=== PATIENT | male | born 1930 | race Caucasian/White ===

== ENCOUNTER → 2017-03-11 | Outpatient (CLI) | payer MEDICARE, BC ==
[~2017-03-11] MED LIST: CARDI-OMEGA1000 MG PO; CIPRO 250MG TA250 MG PO; FERROUS SU325 MG/TAB PO; FOLIC ACID 40400 MCG PO; MULTIPLE VITAMI1 CAP PO; NORCO 325 MG-51 TAB PO; OMEPRAZOLE20 MG PO; VITAMIN C BUFF500 MG PO
== END ==
LOC: COL.RAD 12:02
DX: M51.36 Other intervertebral disc degeneration, lumbar region (principal); R41.3 Other amnesia
CPT/HCPCS: Q9967

== ENCOUNTER → 2018-11-28 | Outpatient (CLI) | payer MEDICARE, BC | LOC: COL.RAD 10:01 | DX: G31.9 Degenerative disease of nervous system, unspecified (principal); W19.XXXA Unspecified fall, initial encounter | CPT/HCPCS: A9585 ==